=== PATIENT | male | born 1995 | race Caucasian/White ===

== ENCOUNTER 2020-02-10 21:27 | Emergency (ER) | payer SELFPAY ==
[~2020-02-10] VITALS: Ht 180.3 cm; Wt 65.9 kg
[2020-02-10 21:27] VITALS: TEMP 97.1
[2020-02-10 21:55] VITALS: BP 156/121; PULSE 0
[2020-02-10 22:11] LABS: BASO % 0.2 % (0.0-2.0); GRAN # 2.5 (1.4-6.5); GRAN % 55.2 % (42.2-75.2); HEMATOCRIT 41.2 % (42.0-52.0); HEMOGLOBIN 13.9 g/dl (13.5-18.0); LYMPH # 1.8 (1.2-3.4); LYMPH % 39.6 % (20.0-51.0); MEAN CELL VOLUME 94 fl (80.0-100.0); MEAN CORPUSCULAR HEMOGLOBIN 32 pg (27.0-31.0); MEAN CORPUSCULAR HGB CONC 34 g/dl (33.0-37.0); MEAN PLATELET VOLUME 10.5 fl (7.4-10.4); MONO # 0.2 (0.1-0.6); MONO % 4.8 % (1.7-9.3); PLATELET COUNT 104 K/mm3 (130-400); REDCELL DISTRIBUTION WIDTH-CV 12.1 % (11.5-14.5)
--- NOTE | 2020-02-11 01:42 | NUR ---
2124 CALLED FROM ED ABOUT CODE BLUE IN TRAUMA 2126 RT ENTERED ROOM 2127 8.0 TUBE 23@ TEETH, BILATERAL BREATH SOUNDS AND EQUAL CHEST RISE 2154 TIME OF
== END 2020-02-11 07:33 | disposition expired ==
LOC: COL.ER 21:27 → EDBD 21:33 → COL.ER 02-11 07:33
PROVIDERS: Emergency Medicine
DX: I46.9 Cardiac arrest, cause unspecified (principal); S21.101A Unspecified open wound of right front wall of thorax without penetration into thoracic cavity, initial encounter; X78.1XXA Intentional self-harm by knife, initial encounter
CPT/HCPCS: J0171; J7030; P9016